=== PATIENT | female | born 1990 | race Caucasian/White ===

== ENCOUNTER → 2019-01-03 | Outpatient (CLI) | payer OTHER | LOC: OD 09:19 | PROVIDERS: ATTEND Obstetrics & Gynecology | DX: O36.80X0 Pregnancy with inconclusive fetal viability, not applicable or unspecified (principal) | CPT/HCPCS: 36415; 84702 ==

== ENCOUNTER 2019-01-24 07:17 | Day surgery (SDC) | payer OTHER ==
[2019-01-24] MEDS ORDERED: RINGERS SOLUTION,LACTATED 1,000 ML IV PRN (07:19)
[2019-01-24] MEDS ORDERED: DOXYCYCLINE HYCLATE 100 MG in DEXTROSE 5%-WATER 250 ML IV PRN (07:19)
[2019-01-24] MEDS ORDERED: FAMOTIDINE INJ/PF 20 MG/2 ML SDV IV PRN (07:32)
[2019-01-24] MEDS ORDERED: FAMOTIDINE INJ/PF 20 MG/2 ML SDV IV ONE (07:54)
[2019-01-24 08:06] LABS: HEMATOCRIT 38.5 % (36.0-47.0); HEMOGLOBIN 13.3 g/dL (12.0-15.5); MEAN CORPUSCULAR HGB CONC 34.5 g/dL (32.0-36.0); MEAN CORPUSCULAR VOLUME 90 fl (80-97); PLATELET COUNT 361 10^3/uL (150-450); RED BLOOD COUNT 4.29 10^6/uL (3.72-5.28); RED CELL DISTRIBUTION WIDTH 12.5 % (11.5-14.0); WHITE BLOOD COUNT 4.5 10^3/uL (4.0-10.5)
[2019-01-24] MEDS ORDERED: PROPOFOL INJ 200 MG/20 ML VIAL IV ONE (08:54)
[2019-01-24] MEDS ORDERED: FENTANYL CITRATE INJ/PF 100 MCG/2 ML AMPUL ONE (08:54)
[2019-01-24] MEDS ORDERED: MIDAZOLAM 2 MG/2 ML INJ ONE (08:54)
--- NOTE | 2019-01-24 09:59 | Operative Report ---
Operative Report DATE OF SURGERY: 01/24/19 PREOPERATIVE DIAGNOSIS: Incomplete POSTOPERATIVE DIAGNOSIS: Same OPERATION: Suction dilation and curettage SURGEON: SAMUEL OSORIO ANESTHESIA: LMAC TISSUE REMOVED OR ALTERED: Retained products of conception COMPLICATIONS: None ESTIMATED BLOOD LOSS: 30 cc INTRAOPERATIVE FINDINGS: Uterus sounded to 8 cm products extruding from cervical office PROCEDURE: Patient was taken to the operating room prepared and draped in a normal sterile fashion in a dorsal lithotomy position. An in and out cath was performed of approximately 100 cc of clear urine. Sterile speculum was placed into the vagina and the cervix was prepped with Betadine and grasped on the anterior lip with a single-tooth tenaculum. The uterus was sounded to the above findings. The cervix was dilated to accommodate an 8 mm curved curette. The curved curette was passed x3 under suction and a small amount of decidual type tissue was removed. Curettage was performed using Kevorkian curette. Good great was noted 360 degrees around. More pass with the suction curette no further tissue. The procedure was then concluded Metzenbaums were removed sponge lap and needle counts were correct x2. She was taken to recovery in stable condition
[2019-01-24] MEDS ORDERED: MORPHINE SULFATE 10 MG/ML INJ IM PRN (10:14)
[2019-01-24] MEDS ORDERED: OXYCODONE-ACETAMINOPHEN 5-325 MG TABLET PO PRN (10:14)
[2019-01-24] MEDS ORDERED: PROMETHAZINE HCL INJ 25 MG/1 ML VIAL IM PRN (10:15)
[2019-01-24 12:04] VITALS: BP 96/58
[2019-01-24] MEDS ORDERED: IBUPROFEN 800 MG TABLET PO SCH (14:00)
== END 2019-01-24 11:20 | disposition home or self-care (01) ==
LOC: OROUT 07:17
PROVIDERS: ATTEND Obstetrics & Gynecology
DX: O03.4 Incomplete spontaneous abortion without complication (principal)
CPT/HCPCS: 36415; 85027; 88305 ×2; 01965; 59812; J2250; J3490; J3010; J7060; J2704; S0028; 1965